=== PATIENT | female | born 1980 | race African-American/Black ===

== ENCOUNTER 2017-07-23 16:22 | Emergency (ER) | payer SELFPAY ==
[~2017-07-23] VITALS: Ht 188 cm; Wt 118.4 kg
[2017-07-23 18:28] LABS: BASOPHIL % 0.4 % (0-2); PLATELET COUNT 266 x10^3mcL (130-400)
[2017-07-23 18:37] LABS: RED CELL DISTRIBUTION WIDTH 18.1 % (11.5-14.5)
[2017-07-23 18:41] LABS: CALCIUM 8.6 mg/dL (8.5-10.1); CARBON DIOXIDE 27.3 mmol/L (21-32); CHLORIDE SERUM 101 mmol/L (98-107); CREATININE SERUM 0.9 mg/dL (0.6-1.0); GFR1 > 60 mL/min; GLUCOSE SERUM 92 mg/dL (74-106); POTASSIUM SERUM 3.7 mmol/L (3.5-5.1); SODIUM SERUM 130 mmol/L (136-145)
[2017-07-23 18:45] LABS: CK-MB < 0.5 ng/mL (0-3.6); CREATINE KINASE 237 U/L (26-192)
[2017-07-23 19:00] LABS: rbc morphology (normal/abnorm) ABNORMAL (NORMAL)
[2017-07-23 19:01] LABS: ovalocyte/elliptocyte 1+; tear drop cell (dacryocyte) 1+
[2017-07-23 19:29] LABS: AMPHETAMINE QUAL UR NONE DETECTED (NEG <=1000)
[2017-07-23 19:37] LABS: microscopic required? YES
[2017-07-23 19:39] LABS: urine erythrocyte 3+ (NEGATIVE)
[2017-07-23 19:53] VITALS: BP 142/86
== END 2017-07-23 19:53 | disposition home or self-care (01) ==
LOC: ED 16:22
PROVIDERS: Emergency Medicine
DX: B34.9 Viral infection, unspecified (principal); D64.9 Anemia, unspecified; E87.1 Hypo-osmolality and hyponatremia
CPT/HCPCS: 83880; J2405; J7030; J7613; Q0092